=== PATIENT | female | born 1970 | race Caucasian/White ===

== ENCOUNTER 2019-07-06 20:56 | Emergency (ER) | payer BC, MEDICAID ==
--- NOTE | 2019-07-06 21:23 | NUR ---
PATIENT WAS NOT SEEN BY [facility] OR TRIAGED.
== END 2019-07-06 21:26 | disposition left against medical advice (07) ==
LOC: ER 20:56
DX: Z53.21 Procedure and treatment not carried out due to patient leaving prior to being seen by health care provider (principal)